=== PATIENT | female | born 1955 | race Two or more races ===

== ENCOUNTER 2024-09-26 16:54 | Emergency (ER) | payer OTHER ==
[~2024-09-26] VITALS: Ht 165.1 cm; Wt 81.6 kg
[2024-09-26 17:39] VITALS: BP 119/82; O2SAT 99
[2024-09-26] MEDS ORDERED: CRESTOR40 MG PO (17:39)
[2024-09-26] MEDS ORDERED: DIPHENHYDRAMINE HCL 50 MG/ML VIAL 1ML IM STA (18:04)
== END 2024-09-26 20:19 | disposition home or self-care (01) ==
LOC: ER 16:56
DX: B02.8 Zoster with other complications (principal); Z88.6 Allergy status to analgesic agent
CPT/HCPCS: 36415; 99282; J1200